=== PATIENT | male | born 1965 | race Caucasian/White ===

== ENCOUNTER 2025-01-10 02:50 | Outpatient (CLI) | payer BC, SELFPAY ==
[2025-01-10] MEDS: Barium Sulfate 2% W/V-Berry Smoothie 450 ML BTL PO (08:04)
[2025-01-10] MEDS: Barium Sulfate 2% W/V-Creamy Vanilla Smoothie 450 ML BTL PO (08:04)
[2025-01-10] MEDS: Normal Saline - Diluent 50 ML VIAL IJ (10:15)
[2025-01-10] MEDS: Normal Saline Flush 10 ML SYR IVP (10:15)
[2025-01-10] MEDS: Omnipaque 350 MG/ML 100 ML BTL IJ (10:16)
--- NOTE | 2025-01-10 10:17 | DI.CT_ITS ---
Exam(s) CT ABDOMEN PELVIS W EXAM: CT ABDOMEN PELVIS W CLINICAL HISTORY: RLQ LUQ ABD PAIN R10.31 R10.12. TECHNIQUE: Imaging Protocol: Axial computed tomography images with coronal and sagittal reformatted images were created and reviewed CONTRAST MATERIAL: Intravenous: Omnipaque 350 Contrast volume:75 ml Oral: yes COMPARISON: No exams were available for comparison FINDINGS: ABDOMEN and PELVIS: Lung Bases: No acute findings. Liver: Normal density. No suspicious mass. Gallbladder and biliary tract: No radiodense calculus. No wall thickening or pericholecystic fluid. No biliary dilation. Pancreas: Normal density. No abnormal calcifications or inflammatory process. No evidence of mass. Spleen: Normal. Kidneys: Normal size, contour and axis. No radiodense stones. No obstructive uropathy. No suspicious masses seen. Adrenal glands: No masses seen. Vasculature: Abdominal aorta non-dilated. Soft tissues: Unremarkable. Bladder: No gross wall thickening. No calculi.No focal mass. Bowel: There is are 2 diverticula involving the transverse portion of the duodenum, measuring approximately 4.5 cm. No associated inflammation. No obstruction. No bowel wall thickening. Appendix normal. There are few diverticula in the sigmoid region. No evidence of diverticulitis. Normal quantity of stool. Peritoneal cavity: No ascites. No focal collection. No mesenteric inflammatory response. No free air. Bones: Unremarkable for age. Degenerative disc changes L5-S1. Reproductive organs: Unremarkable. Lymph nodes: No pathologically enlarged lymph nodes. IMPRESSION:: No acute abnormality in the abdomen or pelvis. There are 2 diverticula of the transverse duodenum but no evidence of inflammation. RADIATION DOSE DELIVERED: 451.86mGy.cm Total DLP DATA REPOSITORY: All CT scans at this facility are submitted to the National Radiology Data Registry (NRDR) Dose Index Registry (DIR) with the [employer] ([employer]). RADIATION OPTIMIZATION: All CT scans at this facility use at least one of these dose optimization techniques: automated exposure control; mA and/or kV adjustment per patient size (includes targeted exams where dose is matched to clinical indication); or iterative reconstruction.
== END 2025-01-10 03:10 ==
PROVIDERS: PCP Physician Assistant; Visit Provider Physician Assistant
DX: R10.31 Right lower quadrant pain (principal); R10.12 Left upper quadrant pain
CPT/HCPCS: 74177; J3490